=== PATIENT | male | born 1935 | race Caucasian/White ===

== ENCOUNTER 2017-03-10 17:33 | Inpatient (IN) | payer OTHER ==
[~2017-03-10] VITALS: Ht 165.1 cm; Wt 62.8 kg
--- NOTE | 2017-03-10 18:59 | NUR ---
PT PRESENTS TO THE ED WITH THE COMPLAINT OF CONSTIPATION X 2 DAYS AND MID NON RADIATING CHEST PAIN WHICH HAS BEEN CONSTANT X 2 DAYS. PT REPORTS CURRENTLY HIS CHEST PAIN IS 6/10 ON THE VERBAL NUMERIC PAIN SCALE. PTS FAMILY MEMBER IS AT BEDSIDE WITH THE PT.
[2017-03-10 19:17] LABS: BASOPHIL % 0.6 % (0-2); PLATELET COUNT 172 x10^3mcL (130-400); RED CELL DISTRIBUTION WIDTH 14.1 % (11.5-14.5)
--- NOTE | 2017-03-10 19:19 | NUR ---
RECEIVED REPORT FROM [facility] D[facility]ONT. ALL QUESTIONS AND CONCERNS ADDRESSED.
[2017-03-10 19:23] LABS: CALCIUM 8.9 mg/dL (8.5-10.1); CHLORIDE SERUM 92 mmol/L (98-107); GLUCOSE SERUM 115 mg/dL (74-106); POTASSIUM SERUM 3.6 mmol/L (3.5-5.1); SODIUM SERUM 127 mmol/L (136-145)
[2017-03-10 19:28] LABS: ALBUMIN 3.8 g/dL (3.4-5.0); ALKALINE PHOSPHATASE 64 U/L (46-116); ALT/SGPT 28 U/L (16-63); AST/SGOT 22 U/L (15-37); BILIRUBIN TOTAL 2.01 mg/dL (0.20-1.00); TOTAL PROTEIN, SERUM 7.4 g/dL (6.4-8.2)
[2017-03-10] MEDS ORDERED: INVOKANA300 MG PO (21:16)
[2017-03-10] MEDS ORDERED: [UNRECOGNIZED DRUG - OTHER] (21:17)
[2017-03-10] MEDS ORDERED: DIAMICRON (21:18)
[2017-03-10] MEDS ORDERED: [UNRECOGNIZED DRUG - OTHER] (21:19)
[2017-03-10] MEDS ORDERED: SIMVASTATIN40 M1 PO (21:19)
[2017-03-10] MEDS ORDERED: [UNRECOGNIZED DRUG - OTHER] (21:19)
[2017-03-10] MEDS ORDERED: BENAZEPRIL HCL/1 TAB PO (21:20)
[2017-03-10 22:08] VITALS: BP 113/58
--- NOTE | 2017-03-10 22:16 | NUR ---
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
--- NOTE | 2017-03-10 22:21 | NUR ---
PT AAOX4. DAUGHTER AT BEDSIDE. TELE 4, SR WITH JUNCTIONAL, BBB, PVC, SHORT PAUSES. DENIES ANY PAIN AT THIS TIME. THE PT HAS AN IV 20G RAC INFUSING 100 MLHR NS. BOWEL SOUNDS ACTIVE IN ALL 4 QUADS. NO EDEMA NOTED. PULSES PRESENT. THE BED IS IN THE LOWEST POSITION, TWO RAILS UP. CALL LIGHT WITHIN REACH. WILL CONTINUE TO MONITOR.
--- NOTE | 2017-03-10 22:31 | NUR ---
PT REQUESTING DIET. CONTACTED DR. CAMPBELL. AWAITING ORDERS.
[2017-03-11 00:19] LABS: T3 TOTAL 0.71 ng/mL
[2017-03-11 00:23] LABS: CHOLESTEROL/HDL RATIO 2.3; MAGNESIUM 2.3 mg/dL (1.8-2.4); PHOSPHOROUS 4.4 mg/dL (2.5-4.9)
[2017-03-11 00:32] LABS: FREE T4 1.33 ng/dL (0.76-1.46); FREE THYROXINE INDEX 3.4 ug/dL (1.4-4.5); T4(THYROXINE) 9.2 ug/dL (4.7-13.3)
--- NOTE | 2017-03-11 00:38 | NUR ---
PT IS SLEEPING COMFORTABLY. UNLABORED, EVEN BREATHING. BED IN LOWEST POSITION. CALL LIGHT WITHIN REACH. WILL CONTINUE TO MONITOR.
--- NOTE | 2017-03-11 02:26 | NUR ---
UA SENT DOWN TO LAB
[2017-03-11 02:27] LABS: microscopic required? NO
[2017-03-11 03:06] LABS: UA SPECIFIC GRAVITY <=1.005 (1.005-1.035); urine erythrocyte NEGATIVE (NEGATIVE)
--- NOTE | 2017-03-11 03:06 | NUR ---
PT IS SLEEPING COMFORTABLY. EVEN, UNLABORED BREATHING. BED IN LOWEST POSITION AND CALL LIGHT WITHIN REACH. WILL CONTINUE TO MONITOR.
[2017-03-11 04:55] VITALS: BP 132/63
--- NOTE | 2017-03-11 05:55 | NUR ---
ALL NEEDS HAVE BEEN MET THROUGHOUT THE NIGHT. NO DISTRESS NOTED. BED IN LOWEST POSITION AND CALL LIGHT WITHIN REACH. WILL CONTINUE TO MONITOR.
--- NOTE | 2017-03-11 06:39 | NUR ---
SPECIMEN TO OBTAIN ORDERED JUST NOW FOR URINE OSMOALITY AND URINE LYTES. CALLED LAB TO SEE IF THE 0300 URINE SPECIMEN COULD BE USED FOR THE TWO NEW TESTS. LAB CONFIRMED THAT THEY COULD USE THE SAME URINE. WILL ENDORSE.
[2017-03-11 06:49] LABS: BASOPHIL % 0.3 % (0-2); PLATELET COUNT 140 x10^3mcL (130-400); RED CELL DISTRIBUTION WIDTH 14.1 % (11.5-14.5)
[2017-03-11 07:14] LABS: CALCIUM 8.3 mg/dL (8.5-10.1); CARBON DIOXIDE 28.6 mmol/L (21-32); CHLORIDE SERUM 100 mmol/L (98-107); CREATININE SERUM 0.8 mg/dL (0.7-1.3); GLUCOSE SERUM 73 mg/dL (74-106); POTASSIUM SERUM 3.2 mmol/L (3.5-5.1); SODIUM SERUM 132 mmol/L (136-145)
--- NOTE | 2017-03-11 07:20 | NUR ---
ALERT AND ORIENTED. BREATHING FREELY ON RA. TELE # 4 JUNCTIONAL,BBB,PVC,SLIGHT PAUSE. DENIES ANY CHEST PAIN AT THIS TIME. WHEN CHEST PAIN PRESENT IT IS DESCRIBED THROBBING. HAS OWN CANE AT BEDSIDE. MOVES FREELY IN BED. NS I NFUSING 100 CC HOUR TO RT AC. CALL LIGHT WITHIN REACH. ECHO ORDERED.
[2017-03-11 09:49] VITALS: BP 101/52
--- NOTE | 2017-03-11 12:26 | NUR ---
RESTING QUIETLY AND COMFORTABLY. BREATHING FREELY ON RA. ECHO COMPLETED. FAMILY AT BEDSIDE. GOT TO BR WITH ASSIST.
[2017-03-11 14:18] VITALS: BP 104/52
--- NOTE | 2017-03-11 14:42 | NUR ---
Initial Nutrition Assessment Dx: Chest Pain, Acute Coronary Syndrome, Hyponatremia PMHx: DM, HTN, HLD PSHx: Back surgery Labs: Na 132 L, K 3.2 L, BG 73 L; (03/10) TBili 2.01 H, A1C 7 H Meds: Colace, humulin R, NS IV, zofran Current Diet Order: CCHO-60 gm PO Intakes: (03/11) B: 100% Ht: 65", 5' 5". Wt: 138 lb, 63 kg. BMI: 23 kg/m2 (Normal) IBW: 136 lb, 62 kg. %IBW: 102%. UBW: Pt unable to recall. Age: 82 Y/O M Food Allergies: None Skin: Intact. Britton 21. Edema: None GI: Active bowel sounds. Last BM 03/10. Nursing Trigger: Appears underweight/malnourished; Unintentional weight loss >10 lb in past month; Poor PO intakes >3 days. Pt found with chest pain likely secondary to costochondritis vs GERD, r/o ACS per doctor's notes. Per Bed Huddle reports, pt undergoing chest pain workup today, and discharge planning tomorrow. Pt is Russian-speaking, however, daughter is [place]uran-speaking per doctor's H&P documentation. Pt was seen resting in bed, no family at bedside. Mud Mixer Helper assisted in translation. Pt reported good PO intakes, tolerating diet at this time. Pt also reported no recent weight changes, however, unable to recall UBW. Noted no signs and symptoms of malnutrition noted. Problem with: N: None. V: None. D: None. C: None. Problems with: Chewing: None. Swallowing: None. Current Appetite: Good Recent Weight Change: None per pt. % Weight Change: N/A Vitamin/Supplement use: None Diet at Home: Regular; Eggs, beans, potatoes Physical Activity: Uses cane to ambulate Education: DM class flyer was provided. Pt reported understanding the diet well, declined further education. Estimated Nutritional Needs Based CBW 138 lb, 63 kg. Energy: 0308-7773 kcal/day (25-30 kcal/kg for Geriatric Maintenance) Protein: 63 gm/day (1 gm/kg for Geriatric Maintenance) Fluids: 1575 ml/day (25 ml/kg for Geriatric Maintenance) or per doctor Nutrition Diagnosis Altered nutrition related labs related to endocrine dysfunction as evidenced by admitted glucose level 115 mg/dL, A1C 7% Intervention 1. Continue CCHO-60 gm diet per doctor. Monitor/Evaluate Goal: PO intakes to meet >75% of estimated needs Monitor: PO intakes, tolerance to diet, labs (BG), skin integrity, GI function, weights F/U in 7 days as LOW risk (03/18)
[2017-03-11 17:08] VITALS: BP 105/52
--- NOTE | 2017-03-11 19:21 | NUR ---
ALERT AND ORIENTED. CITIZEN OF [place] SPEAKING. FAMILY AT BEDSIDE MOST OF SHIFT. HAS DENIED ANY PAIN CHEST OR OTHERWISE. BRP WITH ASSIST. NS INFUSING 100 CC HOUR. BP RUNS A LITTLE LOW. LAST BP 105/52 HR 63. CALL LIGHT WITHIN REACH.
--- NOTE | 2017-03-11 19:40 | NUR ---
PT ALERT AND AWAKE. AOX4. VERBAL IN [place] WITH CLEAR SPEECH. LUNGS CLEAR BILATERALLY. 98% RA. NO S/S OF RESPIRATORY DISTRESS NOTED. ON TELE 4, SB. DENIES ANY CHEST PAIN. BOWEL SOUNDS ACTIVE. SKIN WARM AND DRY. IV TO RIGHT AC PATENT AND INTACT. NO S/S OF INFECTION NOTED. NO EDEMA NOTED. PULSES PALPABLE. DENIES ANY PAIN. NO S/S OF DISTRESS NOTED. CALL LIGHT WITHIN REACH. WILL CONTINUE TO MONITOR.
[2017-03-11 21:49] VITALS: BP 101/47
--- NOTE | 2017-03-12 00:03 | NUR ---
PT RESTING IN BED WITH EYES CLOSED. BREATHING EQUAL AND UNLABORED. NO S/S OF RESPIRATORY DISTRESS NOTED. IV PATENT AND INFUSING WELL. RESTING COMFORTABLY WITH RELAXED FACIAL FEATURES. CALL LIGHT WITHIN REACH. WILL CONTINUE TO MONITOR.
[2017-03-12 05:38] VITALS: BP 114/50
--- NOTE | 2017-03-12 06:00 | NUR ---
PT SLEPT WELL THROUGH THE NIGHT. AROUSED WHEN NAME CALLED. ALERT AND VERBAL WITH CLEAR SPEECH. DENIES ANY PAIN OR CHEST PAIN. NO S/S OF DISTRESS OR DISCOMFORT NOTED. IV PATENT AND INFUSING WELL. NO S/S OF INFECTION NOTED. CALL LIGHT WITHIN REACH. WILL CONTINUE TO MONITOR.
[2017-03-12 06:35] LABS: BASOPHIL % 0.4 % (0-2); PLATELET COUNT 134 x10^3mcL (130-400); RED CELL DISTRIBUTION WIDTH 14.3 % (11.5-14.5)
[2017-03-12 06:48] LABS: CALCIUM 8.3 mg/dL (8.5-10.1); CARBON DIOXIDE 25.9 mmol/L (21-32); CHLORIDE SERUM 103 mmol/L (98-107); CREATININE SERUM 0.8 mg/dL (0.7-1.3); GLUCOSE SERUM 116 mg/dL (74-106); POTASSIUM SERUM 4.5 mmol/L (3.5-5.1); SODIUM SERUM 135 mmol/L (136-145)
--- NOTE | 2017-03-12 07:45 | NUR ---
PATIENT AOX3, ABLE TO MAKE NEEDS KNOWN. TELE 4 DENIES CP/PALPITATIONS. DENIES HEADACHE. LUNGS CTA, NO RESP DISTRESS NOTED ON RA. PERIPHERAL PULSES PALPABLE, NO EDEMA NOTED. BOWEL SOUNDS ACTIVE, LAST BM STATED YESTERDAY, DENIES ANY GI DISCOMFORT. SKIN INTACT. IV ACCESS TO RAC RUNNING NS INFUSING WELL SITE WNL. CALL LIGHT WITHIN REACH. DENIES PAIN/DISCOMFORT AT THIS TIME. CALL LIGHT WITHIN REACH.
[2017-03-12 08:00] VITALS: BP 132/62
--- NOTE | 2017-03-12 08:35 | NUR ---
DR PAREKH AND TEAM WITH MINES SAFETY ENGINEER AT BEDSIDE, INFORMED PATIENT OF UPDATED RESULTS AND THAT HE MAY BE DISCHARGED TODAY. PATIENT VERBALIZED UNDERSTANDING AND COOPERATIVE WITH PLAN OF CARE.
[2017-03-12 12:57] VITALS: BP 117/60
[2017-03-12] MEDS ORDERED: METOPROLOL TART25 M1 PO (13:46)
[2017-03-12 13:54] VITALS: BP 117/60
== END 2017-03-12 15:05 | disposition home or self-care (01) | DRG 391 ==
LOC: ED 17:33 → DU 21:00
PROVIDERS: Emergency Medicine; Family Medicine; ADMIT Student in an Organized Health Care Education/Training Program
DX: K21.9 Gastro-esophageal reflux disease without esophagitis (principal); N17.0 Acute kidney failure with tubular necrosis; E87.1 Hypo-osmolality and hyponatremia; D68.69 Other thrombophilia; E86.0 Dehydration; K59.00 Constipation, unspecified; E11.65 Type 2 diabetes mellitus with hyperglycemia; E11.59 Type 2 diabetes mellitus with other circulatory complications; I45.10 Unspecified right bundle-branch block; I10 Essential (primary) hypertension; E78.5 Hyperlipidemia, unspecified; E87.8 Other disorders of electrolyte and fluid balance, not elsewhere classified; Z68.22 Body mass index [BMI] 22.0-22.9, adult
CPT/HCPCS: 82962; 83880; 84439; J7030; J7040; Q0092

== ENCOUNTER 2020-09-05 16:43 | Observation (INO) | payer OTHER ==
[~2020-09-05] VITALS: Ht 167.6 cm; Wt 66.2 kg
[~2020-09-05 16:43] MED LIST: BENAZEPRIL HCL/1 TAB PO; DIAMICRON; INVOKANA300 MG PO; METOPROLOL TART25 M1 PO; SIMVASTATIN40 M1 PO; [UNRECOGNIZED DRUG - OTHER]; [UNRECOGNIZED DRUG - OTHER]; [UNRECOGNIZED DRUG - OTHER]
[2020-09-05 17:11] VITALS: Ht 167.6 cm; Wt 66.2 kg
[2020-09-05 18:42] LABS: BASOPHIL % 0.7 % (0.2-1.5); CALCIUM 8.5 mg/dL (8.5-10.1); CARBON DIOXIDE 25.3 mmol/L (21-32); CHLORIDE SERUM 97 mmol/L (98-107); CREATININE SERUM 1.2 mg/dL (0.7-1.3); GLUCOSE SERUM 375 mg/dL (74-106); PLATELET COUNT 158 x10^3mcL (152-348); POTASSIUM SERUM 4.7 mmol/L (3.5-5.1); RED CELL DISTRIBUTION WIDTH 13.7 % (12.1-16.2); SODIUM SERUM 133 mmol/L (136-145)
[2020-09-05 18:46] LABS: ALBUMIN 3.5 g/dL (3.4-5.0); ALKALINE PHOSPHATASE 111 U/L (46-116); ALT/SGPT 24 U/L (16-63); AST/SGOT 12 U/L (15-37); BILIRUBIN TOTAL 0.8 mg/dL (0.20-1.00); CHOLESTEROL 164 mg/dL (<200); HDL CHOLESTEROL 50 mg/dL (40-60); MAGNESIUM 2.1 mg/dL (1.8-2.4); TOTAL PROTEIN, SERUM 7.5 g/dL (6.4-8.2)
[2020-09-05] MEDS ORDERED: NOVI SQ (20:35)
[2020-09-05] MEDS ORDERED: BASAGLAR K100 UNIT/1 SQ (20:36)
[2020-09-05] MEDS ORDERED: FLOMAX0.4 MG PO (21:15)
[2020-09-05] MEDS ORDERED: ARICEPT5 MG PO (21:16)
[2020-09-05] MEDS ORDERED: PEPCID40 MG PO (21:16)
[2020-09-05] MEDS ORDERED: MELATONIN5 M1 SL (21:16)
[2020-09-05] MEDS ORDERED: XANAX0.25 MG PO (21:17)
[2020-09-05 23:02] VITALS: BP 123/87
[2020-09-06 06:16] VITALS: BP 127/64
[2020-09-06 07:57] LABS: BASOPHIL % 0.1 % (0.2-1.5); PLATELET COUNT 155 x10^3mcL (152-348); RED CELL DISTRIBUTION WIDTH 13.4 % (12.1-16.2)
[2020-09-06 08:32] LABS: ALKALINE PHOSPHATASE 97 U/L (46-116); ALT/SGPT 23 U/L (16-63); AST/SGOT 10 U/L (15-37); BILIRUBIN TOTAL 0.8 mg/dL (0.20-1.00); CALCIUM 8.5 mg/dL (8.5-10.1); CARBON DIOXIDE 27.1 mmol/L (21-32); CHLORIDE SERUM 102 mmol/L (98-107); CHOLESTEROL 142 mg/dL (<200); CHOLESTEROL/HDL RATIO 3.2; CREATININE SERUM 1.1 mg/dL (0.7-1.3); GLUCOSE SERUM 271 mg/dL (74-106); HDL CHOLESTEROL 44 mg/dL (40-60); MAGNESIUM 1.9 mg/dL (1.8-2.4); POTASSIUM SERUM 4.4 mmol/L (3.5-5.1); SODIUM SERUM 136 mmol/L (136-145); TOTAL PROTEIN, SERUM 6.9 g/dL (6.4-8.2); TRIGLYCERIDES 102 mg/dL (<150)
[2020-09-06 08:41] LABS: ALBUMIN 3.2 g/dL (3.4-5.0)
[2020-09-06 08:52] VITALS: BP 138/59
[2020-09-06 12:07] VITALS: BP 137/67
[2020-09-06 16:11] VITALS: BP 128/67
[2020-09-06 21:23] VITALS: BP 136/80
[2020-09-07] VITALS (8 sets, daily range): BP systolic 112–137; BP diastolic 58–73
[2020-09-07 06:57] LABS: BASOPHIL % 0.3 % (0.2-1.5); PLATELET COUNT 163 x10^3mcL (152-348); RED CELL DISTRIBUTION WIDTH 13.6 % (12.1-16.2)
[2020-09-07 08:12] LABS: ALBUMIN 3.4 g/dL (3.4-5.0); ALKALINE PHOSPHATASE 99 U/L (46-116); ALT/SGPT 22 U/L (16-63); AST/SGOT 10 U/L (15-37); BILIRUBIN TOTAL 0.77 mg/dL (0.20-1.00); CALCIUM 9.5 mg/dL (8.5-10.1); CARBON DIOXIDE 23.9 mmol/L (21-32); CHLORIDE SERUM 103 mmol/L (98-107); GLUCOSE SERUM 152 mg/dL (74-106); POTASSIUM SERUM 3.8 mmol/L (3.5-5.1); SODIUM SERUM 138 mmol/L (136-145); TOTAL PROTEIN, SERUM 7.2 g/dL (6.4-8.2)
[2020-09-08 05:02] VITALS: BP 143/75
[2020-09-08 07:14] LABS: BASOPHIL % 0.2 % (0.2-1.5); PLATELET COUNT 171 x10^3mcL (152-348); RED CELL DISTRIBUTION WIDTH 13.6 % (12.1-16.2)
[2020-09-08 07:56] LABS: ALBUMIN 3.2 g/dL (3.4-5.0); ALKALINE PHOSPHATASE 88 U/L (46-116); ALT/SGPT 22 U/L (16-63); AST/SGOT 14 U/L (15-37); BILIRUBIN TOTAL 0.6 mg/dL (0.20-1.00); CALCIUM 8.7 mg/dL (8.5-10.1); CHLORIDE SERUM 103 mmol/L (98-107); CREATININE SERUM 0.9 mg/dL (0.7-1.3); GLUCOSE SERUM 86 mg/dL (74-106); SODIUM SERUM 135 mmol/L (136-145); TOTAL PROTEIN, SERUM 6.9 g/dL (6.4-8.2)
[2020-09-08 08:36] VITALS: BP 127/61
[2020-09-08 12:27] VITALS: BP 153/65
[2020-09-08 16:55] VITALS: BP 133/66
[2020-09-08 20:57] VITALS: BP 124/76
[2020-09-09 04:35] VITALS: BP 132/67
[2020-09-09 06:15] LABS: BASOPHIL % 0.1 % (0.2-1.5); PLATELET COUNT 155 x10^3mcL (152-348); RED CELL DISTRIBUTION WIDTH 13.5 % (12.1-16.2)
[2020-09-09 06:31] LABS: ALBUMIN 3.7 g/dL (3.4-5.0); ALKALINE PHOSPHATASE 97 U/L (46-116); ALT/SGPT 23 U/L (16-63); AST/SGOT 17 U/L (15-37); BILIRUBIN TOTAL 1.1 mg/dL (0.20-1.00); CALCIUM 8.8 mg/dL (8.5-10.1); CARBON DIOXIDE 29.4 mmol/L (21-32); CHLORIDE SERUM 102 mmol/L (98-107); CREATININE SERUM 0.9 mg/dL (0.7-1.3); GLUCOSE SERUM 68 mg/dL (74-106); MAGNESIUM 1.9 mg/dL (1.8-2.4); POTASSIUM SERUM 3.6 mmol/L (3.5-5.1); SODIUM SERUM 141 mmol/L (136-145); TOTAL PROTEIN, SERUM 7.7 g/dL (6.4-8.2)
[2020-09-09 07:39] VITALS: BP 134/70
[2020-09-09 12:24] VITALS: BP 133/61
[2020-09-09 17:27] VITALS: BP 138/68
[2020-09-09 20:20] VITALS: BP 136/61
[2020-09-10 05:23] VITALS: BP 117/54
[2020-09-10 07:26] LABS: BASOPHIL % 0.2 % (0.2-1.5); PLATELET COUNT 147 x10^3mcL (152-348); RED CELL DISTRIBUTION WIDTH 13.7 % (12.1-16.2)
[2020-09-10 07:30] VITALS: BP 117/58
[2020-09-10 07:57] LABS: ALKALINE PHOSPHATASE 86 U/L (46-116); ALT/SGPT 19 U/L (16-63); AST/SGOT 16 U/L (15-37); BILIRUBIN TOTAL 1.2 mg/dL (0.20-1.00); CALCIUM 8.6 mg/dL (8.5-10.1); CARBON DIOXIDE 27.2 mmol/L (21-32); CHLORIDE SERUM 106 mmol/L (98-107); CREATININE SERUM 0.9 mg/dL (0.7-1.3); GLUCOSE SERUM 70 mg/dL (74-106); MAGNESIUM 2.1 mg/dL (1.8-2.4); SODIUM SERUM 140 mmol/L (136-145)
[2020-09-10 08:01] LABS: ALBUMIN 3.3 g/dL (3.4-5.0)
[2020-09-10 12:33] VITALS: BP 129/74
== END 2020-09-10 15:24 | disposition home or self-care (01) ==
LOC: ED 16:43 → DU 19:54
PROVIDERS: Emergency Medicine; ADMIT Internal Medicine; ATTEND Internal Medicine
DX: I48.92 Unspecified atrial flutter (principal); R42 Dizziness and giddiness; G30.9 Alzheimer's disease, unspecified; F02.80 Dementia in other diseases classified elsewhere, unspecified severity, without behavioral disturbance, psychotic disturbance, mood disturbance, and anxiety; E11.65 Type 2 diabetes mellitus with hyperglycemia; I10 Essential (primary) hypertension; R55 Syncope and collapse; I48.91 Unspecified atrial fibrillation
CPT/HCPCS: 82962; 83880; 97116-GP; G0378; J1815